=== PATIENT | female | born 1930 | race Caucasian/White ===

== ENCOUNTER 2020-05-09 17:30 | Observation (INO) ==
--- NOTE | 2020-05-09 17:49 | ERNOTE ---
Neuro HPI ER Record Date of Service: 05/09/20 Presenting Symptoms: other - AMS Time Seen by Provider: 05/09/20 17:35 Source: EMS Exam Limitations: clinical condition Immunizations: IMMUNIZATION HX Immunizations Up to Date Yes History of Influenza Vaccine More Information Required Hx Pneumococcal Vaccination More Information Required Allergies/Adverse Reactions: Allergies Allergy/AdvReac Type Severity Reaction Status Date / Time No Known Allergies Allergy Unverified 05/09/20 17:40 Home Medications: HOME MEDICATIONS Acetaminophen [Tylenol] 650 mg PO PRN PRN 05/09/20 [Last Taken Unknown] Aspirin [Aspirin EC] 81 mg PO DAILY 05/09/20 [Last Taken Unknown] Atorvastatin Calcium 40 mg PO DAILY 05/09/20 [Last Taken Unknown] Bisacodyl [Dulcolax] 5 mg PO DAILY PRN 05/09/20 [Last Taken Unknown] Bisacodyl [Laxative] 5 mg PO PRN PRN 05/09/20 [Last Taken Unknown] Brimonidine Tartrate/Timolol [Combigan Eye Drops] 1 drp OPHTHALMIC (EYE) DAILY 05/09/20 [Last Taken Unknown] Brinzolamide [Azopt 1% Ophthalmic Suspension] 1 drp OPHTHALMIC (EYE) DAILY 05/09/20 [Last Taken Unknown] Carvedilol [Coreg] 3.125 mg PO 05/09/20 [Last Taken Unknown] Escitalopram Oxalate [Lexapro] 5 mg PO DAILY 05/09/20 [Last Taken Unknown] Irbesartan 75 mg PO DAILY 05/09/20 [Last Taken Unknown] Latanoprost/Pf [Latanoprost 0.005% Eye Drop] 1 drp OPHTHALMIC (EYE) DAILY 05/09/20 [Last Taken Unknown] Levothyroxine Sodium [Synthroid] 50 mcg PO DAILY 05/09/20 [Last Taken Unknown] Multivitamin/Iron/Folic Acid [Tab-A-Светлана Multivit with Iron] 1 ea PO DAILY 05/09/20 [Last Taken Unknown] Propylene Glycol/Peg 400/Pf [Systane 0.3-0.4% Eye Drops] 1 ea OPHTHALMIC (EYE) BID PRN 05/09/20 [Last Taken Unknown] - Pain Score Pain Score #1 Pain Score: 0 - History of Present Illness Narrative: The patient is a 89 year old female who presents from [facility] for AMS which was noted 1 hour CAR COU[employer] by staff. There are associated symptoms of weakness. The patient denies pain. There are no alleviating factors. There are no aggravating factors. Previous treatments have included: none. The past medical history includes: cognitive decline, HTN, HLD, hypothyroid and macular degeneration. The social history is negative. The patient has had no known ill contacts. Report from [facility] staff that patient was found wandering down halls and looking through drawers, patient was needing redirection and was noted to have AMS. Staff state that patient reported discomfort to her chest and weakness. Review of Systems - Narrative Narrative: Unable to verify ROS with patient due to AMS and poor historian. - Review of Systems Constitutional: Absent: recent illness Medical History (Last Updated 05/09/20 @ 17:49 by Annalisa Bee RN) Age-related cognitive decline Altered mental status, unspecified Essential (primary) hypertension History of falling Hyperlipidemia, unspecified Hypothyroidism Presbycusis, bilateral Primary open angle glaucoma (POAG) of both eyes Repeated falls Unspecified macular degeneration Unsteadiness on feet Physical Exam - Physical Exam General Appearance: Present: wd/wn, alert, no apparent distress Head Exam: Present: normal inspection, no evidence of injury Eye Exam: Normal inspection: bilateral, PERRL: left - abnormal, chronic, EOMI: bilateral Neck: Present: normal inspection, nontender, full range of motion Respiratory: Present: no respiratory distress, normal breath sounds, no accessory muscle use, lungs clear Cardiovascular/Chest: Present: regular rate, rhythm, no murmur Gastrointestinal/Abdominal: Present: normal bowel sounds, nontender, nondi stended, soft, no organomegaly Extremity Exam: Present: no edema Neurological Exam: Present: alert, normal mood/affect, no motor/sensory deficits, disoriented to time, disoriented to place, disoriented to situation. Absent: disoriented to person Skin Exam: Present: normal color, warm/dry Antonio Coma Scale - Assess Eye Opening: Spontaneous Motor: Obeys Commands Verbal: Confused - Total Coma Scale Total: 14 Initial Stroke Assessment - NIH Stroke Scale Level of Consciousness: Alert LOC Questions (Year and Age): Answers neither correctly LOC Commands (open/close eyes/fist): Performs both correctly Lateral Gaze Paresis: None Visual Field Loss: No visual loss - Unable to accurately assess Facial Palsy: Normal movement Right Arm Motor (10 sec hold): No drift Left Arm Motor (10 sec hold): No drift Right Leg Motor (5 sec hold): No drift Left Leg Motor (5 sec hold): No drift Limb Ataxia (finger/nose heel/aguirre): Absent Sensory Loss (pinprick arms/legs/face): No sensory loss Language Aphasia (description/naming/reading): No aphasia; normal Dysarthria (speech clarity): Normal articulation Neglect Inattention (visual/tactile/auditory/spatial/person): No neglect Initial Stroke Scale Score:: 2 Progress - Date and Time Seen: Date and Time: 05/09/20 19:34 Son present in room. Patient remains after IV hydration unable to report time, place or events which son states is very unlike her. We will treat patient for presumed UTI and discuss observation admission with Dr. Mi. 05/09/20 19:40 Case was discussed with Dr. Mi and will admit for observation for AMS and UTI. Will treat patient with IV Rocephin for initial dose. 05/09/20 20:08 We will COVID test patient since she lives at residential care facility as well as having vitals of temp 37.7 and intermittent tachycardia. It is also difficult to assess patient's symptoms as well as review symptoms prior to arrival as patient is poor historian associated with disorientation. Son states when present that patient is typically oriented and understands place, time and situation. - Results and Orders Patient's Lab Results:: I have reviewed the patient's lab results. - Vital Signs Patient's Vital Signs:: I have reviewed the patient's vital signs. Vital Signs: Vital Signs 05/09/20 17:33 Temperature 37.5 C Pulse Rate 96 Respiratory Rate 27 H Blood Pressure 180/68 H O2 Sat by Pulse Oximetry 91 L - EKG EKG #1 EKG: NSR, other - PAC EKG read: Reviewed by me EKG Comments: Reviewed with , no acute ischemic changes. - X-Ray X-Ray #1 X-Ray: chest Interpretation: Reviewed by me X-ray Comments: Real radiology preliminary report Single view chest x-ray No acute cardiopulmonary process. - Progress/Reassessment Chief Complaint: Altered Mental Status Departure Clinical Impression: UTI (urinary tract infection) Qualifiers: Urinary tract infection type: site unspecified Hematuria presence: without hematuria Qualified Code(s): N39.0 - Urinary tract infection, site not specified AMS (altered mental status) Qualifiers: Altered mental status type: disorientation Qualified Code(s): R41.0 - Disorientation, unspecified - Departure Disposition: Still a patient Condition: Stable
[2020-05-09 17:52] LABS: Hematocrit 37.8 % (37.0-47.0); Hemoglobin 12.2 gm/dL (12.5-16.0); Mean Cell Volume 95.5 fl (78-100); Mean Corpuscular Hemoglobin 30.8 pg (27-31); Mean Corpuscular Hgb Conc 32.3 g/dl (32-36); Mean Platelet Volume 9.3 fl (8-12.5); Neutrophil # 4.3 K/mm3 (1.3-6.0); Neutrophil % 70.9 % (42-75.0); Platelet Count 231 K/mm3 (150-450); Red Blood Count 3.96 M/mm3 (4.2-5.4); White Blood Count 6.1 K/mm3 (4.0-10.5)
[2020-05-09 18:02] LABS: Prothrombin Time (Patient) 9.9 Seconds (9.1-10.7)
[2020-05-09 18:03] LABS: Partial Thrombolplastin Time 23.3 Seconds (24-32)
[2020-05-09 18:05] LABS: Albumin * 3.9 gm/dl (3.4-5.0); Anion Gap 11.8 mmol/L (6.8-13.8); BUN/Creatinine Ratio 21.6 (9.0-21.6); Bilirubin, Total 0.4 mg/dL (0.0-1.1); Ca. Corrected For Albumin 9.2 mg/dL (8.4-10.2); Calcium * 9.4 mg/dL (7.9-10.9); Carbon Dioxide 28.2 mmol/L (24-32.6); Total Protein 7.1 gm/dL (6.2-8.2)
[2020-05-09 18:20] LABS: Urine Bilirubin Negative (NEGATIVE); Urine Ketone 5 mg/dL (NEGATIVE); Urine Nitrite Negative (NEGATIVE); Urine Protein Negative (NEGATIVE); Urine Specific Gravity >=1.030 SP.GR. (1.005-1.010); Urine Urobilinogen Normal (NORMAL); Urine pH 5.5 pH (5.0-7.0)
[2020-05-09 18:35] LABS: Urine Appearance Clear (CLEAR); Urine Blood 5 /ul (NEGATIVE); Urine Color Yellow
[2020-05-09 18:36] LABS: Urine Bacteria 3+; Urine Mucus Few - 1+; Urine RBC TRACE /hpf (0-5); Urine WBC TRACE /hpf (0-5)
[2020-05-09] MEDS ORDERED: NORMAL SALINE 500 ML IV PRN (18:38)
[2020-05-09] MEDS ORDERED: cefTRIAXone SODIUM 1,000 MG/100 ML BAG IV ONE (19:35)
--- NOTE | 2020-05-10 06:42 | HP ---
Chief Complaint - Chief Complaint Date of Service: 05/10/20 Time of Service: 06:33 Chief Complaint: AMS History of Present Illness: Parvin Castañeda is an 89-year-old white female who is a resident of [facility] was admitted on 05/09/2024 altered mental status. Her past medical history significant for cognitive decline, hyperlipidemia, hypertension, hypothyroidism, macular degeneration, bilateral presbycusis, history of unsteady gait and history of repeated falls. The patient is awake alert oriented x2 however I am having difficulty getting a clear conversation with her and history. Per emergency room notes the patient was found wandering down the halls and looking through drawers. She was needing redirections and was noted to have altered mental status. [facility] staff also mentioned about discomfort to the chest and weakness. She was then brought to our emergency room where her EKG showed normal sinus rhythm with premature ventricular contraction, no acute cardiopulmonary findings on chest x-ray but with a hiatal hernia, not so significant laboratory results, and a urinalysis which shows bacteria, WBC, microscopic blood and RBC with negative leukocyte esterase and nitrates. She was given 1 g of IV Rocephin in the emergency room and IV fluids and was admitted for observation. Medical History (Last Reviewed 05/09/20 @ 22:40 by Eloisa Velarde RN) Age-related cognitive decline Altered mental status, unspecified Essential (primary) hypertension History of falling Hyperlipidemia, unspecified Hypothyroidism Presbycusis, bilateral Primary open angle glaucoma (POAG) of both eyes Repeated falls Unspecified macular degeneration Unsteadiness on feet Review Of Systems (GEN) - Review of Systems Generalized/Overall Review: Absent: Chills, Fever EENTM: Present: Blurred Vision Respiratory: Absent: Cough, Shortness of Breath, Orthopnea Cardiac: Absent: Chest Pain, Edema, Palpitations Abdominal: Absent: Nausea, Vomiting, Abdominal Pain, Diarrhea Genitourinary: Absent: Urgency, Frequency, Dysuria Neurological: Absent: Headache, Anxiety, Depressed Skin: Absent: Lesions, Rash Misc: All systems neg except as marked Additional Comments: Review of system however is unreliable due to patient's altered mental status Immunizations: IMMUNIZATION HX Immunizations Up to Date Yes History of Influenza Vaccine More Information Required Hx Pneumococcal Vaccination More Information Required Allergies/Adverse Reactions: Allergies Allergy/AdvReac Type Severity Reaction Status Date / Time No Known Allergies Allergy Unverified 05/09/20 17:40 Home Medications: HOME MEDICATIONS Acetaminophen [Tylenol] 650 mg PO Q4H PRN 05/09/20 [Last Taken Unknown] Aspirin [Aspirin EC] 81 mg PO DAILY 05/09/20 [Last Taken 05/09/20 07:00] Atorvastatin Calcium 40 mg PO DAILY 05/09/20 [Last Taken 05/08/20 17:00] Bisacodyl [Dulcolax] 10 mg PO DAILY PRN 05/09/20 [Last Taken Unknown] Bisacodyl [Laxative] 10 mg PO DAILY PRN 05/09/20 [Last Taken Unknown] Brimonidine Tartrate/Timolol [Combigan 0.2%-0.5% Eye Drops] 1 drp OPHTHALMIC (EYE) DAILY 05/09/20 [Last Taken 05/09/20 07:00] Brinzolamide [Azopt 1% Ophthalmic Suspension] 1 drp OPHTHALMIC (EYE) DAILY 05/09/20 [Last Taken 05/09/20 07:00] Carvedilol [Coreg] 3.125 mg PO DAILY 05/09/20 [Last Taken 05/09/20 07:00] Escitalopram Oxalate [Lexapro] 5 mg PO DAILY 05/09/20 [Last Taken 05/08/20 20:00] Irbesartan 75 mg PO DAILY 05/09/20 [Last Taken 05/09/20 07:00] Latanoprost/Pf [Latanoprost 0.005% Eye Drop] 1 drp OPHTHALMIC (EYE) DAILY 05/09/20 [Last Taken 05/08/20 20:00] Levothyroxine Sodium [Synthroid] 50 mcg PO DAILY 05/09/20 [Last Taken 05/09/20 07:00] Multivitamin/Iron/Folic Acid [Tab-A-Светлана Multivit with Iron] 1 ea PO DAILY 05/09/20 [Last Taken 05/09/20 07:00] Propylene Glycol/Peg 400/Pf [Systane 0.3-0.4% Eye Drop] 2 ea OPHTHALMIC (EYE) BID PRN 05/09/20 [Last Taken Unknown] Ciprofloxacin HCl [Cipro] 500 mg PO BID 2 Days #4 tab 05/10/20 [Last Taken Unknown] Exam - Exam Vital Signs: Vital Signs - Last Taken Temp 37 C 05/10/20 03:00 Pulse 89 05/10/20 03:00 Resp 20 05/10/20 03:00 BP 139/65 05/10/20 03:00 Pulse Ox 92 L 05/10/20 03:00 Constitutional: Present: Alert - Awake alert oriented x2, Cooperative, Elderly ENT Exam: Present: hard of hearing Eye Exam: bilateral eye: normal inspection, PERRL, EOMI Neck: Present: supple Respiratory: Present: decreased breath sounds, No rales, No wheezing Cardiovascular/Chest: Present: regular rate, rhythm, no JVD, no murmur Abdomen: Present: Normal bowel sounds, soft, nontender, nondistended Extremity: Present: no pedal edema, no calf tenderness Neurologic: Present: other - Awake alert oriented x2, cranial nerves II through XII grossly intact, no gross motor or sensory deficit Diagnostic Studies: Abnormal Lab Results 05/09/20 05/09/20 05/09/20 Range/Units 17:46 17:46 17:46 RBC 3.96 L (4.2-5.4) M/mm3 Hgb 12.2 L (12.5-16.0) gm/dL Immature Gran % (Auto) 0.70 H (0.001-0.429) % Immature Gran # (Auto) 0.04 H (0.000-0.0310) K/mm3 Lymphocytes % 17.6 L (20-51) % Lymphocytes # 1.07 L (1.5-3.5) k/mm3 PTT (Luis) 23.3 L (24-32) Seconds Est GFR (Non-Af Amer) 57 L (60-130) mL/min Random Glucose 124 H (70-110) mg/dL Urine Blood (NEGATIVE) /ul Urine WBC (0-5) /hpf Urine Bacteria (NONE) Urine Mucus (NONE) 05/09/20 Range/Units 18:15 RBC (4.2-5.4) M/mm3 Hgb (12.5-16.0) gm/dL Immature Gran % (Auto) (0.001-0.429) % Immature Gran # (Auto) (0.000-0.0310) K/mm3 Lymphocytes % (20-51) % Lymphocytes # (1.5-3.5) k/mm3 PTT (Luis) (24-32) Seconds Est GFR (Non-Af Amer) (60-130) mL/min Random Glucose (70-110) mg/dL Urine Blood 5 H (NEGATIVE) /ul Urine WBC Trace H (0-5) /hpf Urine Bacteria 3+ H (NONE) Urine Mucus Few - 1+ H (NONE) Microbiology 05/09/20 17:35 Urine Culture - Preliminary Urine,Catheterized No Growth Laboratory Results WBC 6.1 K/mm3 (4.0-10.5) 05/09/20 17:46 RBC 3.96 M/mm3 (4.2-5.4) L 05/09/20 17:46 Hgb 12.2 gm/dL (12.5-16.0) L 05/09/20 17:46 Hct 37.8 % (37.0-47.0) 05/09/20 17:46 MCV 95.5 fl (78-100) 05/09/20 17:46 MCH 30.8 pg (27-31) 05/09/20 17:46 MCHC 32.3 g/dl (32-36) 05/09/20 17:46 RDW 13.0 % (11.5-14.0) 05/09/20 17:46 Plt Count 231 K/mm3 (150-450) 05/09/20 17:46 MPV 9.3 fl (8-12.5) 05/09/20 17:46 Immature Gran % (Auto) 0.70 % (0.001-0.429) H 05/09/20 17:46 Immature Gran # (Auto) 0.04 K/mm3 (0.000-0.0310) H 05/09/20 17:46 Neutrophils % 70.9 % (42-75.0) 05/09/20 17:46 Lymphocytes % 17.6 % (20-51) L 05/09/20 17:46 Monocytes % 8.4 % (0.0-9) 05/09/20 17:46 Eosinophils % 1.6 % (0.0-3.0) 05/09/20 17:46 Basophils % 0.8 % (0.0-1.0) 05/09/20 17:46 Nucleated RBC % 0.0 k/mm3 (0-1) 05/09/20 17:46 Neutrophils # 4.3 K/mm3 (1.3-6.0) 05/09/20 17:46 Lymphocytes # 1.07 k/mm3 (1.5-3.5) L 05/09/20 17:46 Monocytes # 0.5 k/mm3 (0.0-1.0) 05/09/20 17:46 Eosinophils # 0.1 k/mm3 (0.0-0.7) 05/09/20 17:46 Absolute Basophils 0.1 k/mm3 (0.0-0.1) 05/09/20 17:46 ESR 13 mm/hr (0-15) 05/09/20 17:46 PT 9.9 Seconds (9.1-10.7) 05/09/20 17:46 INR (Anticoag Therapy) 1.00 INR (0.92-1.08) 05/09/20 17:46 PTT ([place]) 23.3 Seconds (24-32) L 05/09/20 17:46 Sodium 140 mmol/L (132-142) 05/09/20 17:46 Plasma Sodium 140 mmol/L (130-142) 05/09/20 17:46 Potassium 4.0 mmol/L (3.4-4.6) 05/09/20 17:46 Chloride 104 mmol/L (97-106) 05/09/20 17:46 Carbon Dioxide 28.2 mmol/L (24-32.6) 05/09/20 17:46 Anion Gap 11.8 mmol/L (6.8-13.8) 05/09/20 17:46 BUN 21 mg/dL (3-23) 05/09/20 17:46 Creatinine 0.97 mg/dL (0.4-1.4) 05/09/20 17:46 Est GFR (Non-Af Amer) 57 mL/min (60-130) L 05/09/20 17:46 BUN/Creatinine Ratio 21.6 (9.0-21.6) 05/09/20 17:46 Random Glucose 124 mg/dL (70-110) H 05/09/20 17:46 Lactic Acid, Venous 1.5 mmol/L (0.4-2.0) 05/09/20 17:46 Calcium 9.4 mg/dL (7.9-10.9) 05/09/20 17:46 Calcium Adj for Albumin 9.2 mg/dL (8.4-10.2) 05/09/20 17:46 Total Bilirubin 0.4 mg/dL (0.0-1.1) 05/09/20 17:46 AST 26 U/L (0-48) 05/09/20 17:46 ALT 28 U/L (19-67) 05/09/20 17:46 Alkaline Phosphatase 76 U/L (50-170) 05/09/20 17:46 Troponin I Less than 0.017 ng/mL (0.00-0.10) 05/09/20 17:43 Total Protein 7.1 gm/dL (6.2-8.2) 05/09/20 17:46 Albumin 3.9 gm/dl (3.4-5.0) 05/09/20 17:46 Urine Color Yellow 05/09/20 18:15 Urine Appearance Clear (CLEAR) 05/09/20 18:15 Urine pH 5.5 pH (5.0-7.0) 05/09/20 18:15 Ur Specific [place] >=1.030 SP.GR. (1.005-1.010) 05/09/20 18:15 Urine Protein Negative mg/dL (NEGATIVE) 05/09/20 18:15 Urine Glucose (UA) Negative mg/dL (NEGATIVE) 05/09/20 18:15 Urine Ketones 5 mg/dL (NEGATIVE) 05/09/20 18:15 Urine Blood 5 /ul (NEGATIVE) H 05/09/20 18:15 Urine Nitrate Negative (NEGATIVE) 05/09/20 18:15 Urine Bilirubin Negative mg/dl (NEGATIVE) 05/09/20 18:15 Urine Urobilinogen Normal EU/dl (NORMAL) 05/09/20 18:15 Ur Leukocyte Esterase Negative /ul (NEGATIVE) 05/09/20 18:15 Urine RBC Trace /hpf (0-5) 05/09/20 18:15 Urine WBC Trace /hpf (0-5) H 05/09/20 18:15 Ur Epithelial Cells Trace /hpf (0-5) 05/09/20 18:15 Urine Bacteria 3+ (NONE) H 05/09/20 18:15 Urine Mucus Few - 1+ (NONE) H 05/09/20 18:15 Urine Culture Comments Culture to follow 05/09/20 18:15 SARS-CoV-2 (PCR) Not detected (ND) 05/09/20 20:08 Assessment/Plan - Narrative Narrative: Parvin Castañeda is an 89-year-old white female resident of the [facility] who was admitted for disorientation and confusion and was admitted for observation. Work-up was negative in the emergency room and she was admitted after IV fluids and 1 g of IV Rocephin for suspected UTI. She is still pleasantly confused this morning but is awake alert oriented x2 ( responded to her name and also answered 2020 to what year it is now by nurse). Her past medical history shows cognitive decline and I believe this is just a progression of that with possible sundowning. We will have physical therapy evaluate her today and is for possible discharge back to her snf. Asymptomatic bacteriuria in the elderly is not usually treated with antibiotics but it was sent for culture and will await results. On the other hand due to her confusion her ROS is unreliable and she could have signs/symptoms of beginning acute cystitis, Will start her on oral cipro 500 mg PO BID for 2 more days. - Assessment/Plan (1) AMS (altered mental status) Problem: Acute Qualifiers: Altered mental status type: disorientation Qualified Code(s): R41.0 - Disorientation, unspecified (2) Asymptomatic bacteriuria Problem: Acute (3) Dementia Problem: Chronic Qualifiers: Dementia type: Alzheimer's disease (4) Hypothyroidism Problem: Chronic Qualifiers: Hypothyroidism type: acquired Qualified Code(s): E03.9 - Hypothyroidism, unspecified (5) Hyperlipidemia Problem: Chronic Qualifiers: Hyperlipidemia type: pure hypercholesterolemia Qualified Code(s): E78.00 - Pure hypercholesterolemia, unspecified (6) History of unsteady gait Assessment: with history of repeated falls. Problem: Chronic (7) CRF (chronic renal failure) Problem: Chronic Qualifiers: Chronic kidney disease stage: stage 3 (moderate) Qualified Code(s): N18.3 - Chronic kidney disease, stage 3 (moderate)
[2020-05-10] MEDS ORDERED: PROPYLENE GLYCOL EACHEYE PRN (08:32)
[2020-05-10] MEDS ORDERED: BISACODYL 10 MG PO PRN (08:32)
[2020-05-10] MEDS ORDERED: [UNRECOGNIZED DRUG - OTHER] EACHEYE PRN (08:32)
[2020-05-10] MEDS ORDERED: PEG EACHEYE PRN (08:32)
[2020-05-10] MEDS ORDERED: BISACODYL 5 MG TABLET.DR PO PRN (08:32)
[2020-05-10] MEDS ORDERED: ACETAMINOPHEN 325 MG TABLET PO PRN (08:32)
--- NOTE | 2020-05-10 08:43 | DS ---
(1) AMS (altered mental status) Problem: Acute Qualifiers: Altered mental status type: disorientation Qualified Code(s): R41.0 - Disorientation, unspecified (2) Asymptomatic bacteriuria Problem: Acute (3) Dementia Problem: Chronic Qualifiers: Dementia type: Alzheimer's disease (4) Hypothyroidism Problem: Chronic Qualifiers: Hypothyroidism type: acquired Qualified Code(s): E03.9 - Hypothyroidism, unspecified (5) Hyperlipidemia Problem: Chronic Qualifiers: Hyperlipidemia type: pure hypercholesterolemia Qualified Code(s): E78.00 - Pure hypercholesterolemia, unspecified (6) History of unsteady gait Problem: Chronic Date of Discharge:: 05/10/20 Hospital Course: Parvin Castañeda is an 89-year-old white female who is a resident of [facility] was admitted on 05/09/2024 altered mental status. Her past medical history significant for cognitive decline, hyperlipidemia, hypertension, hypothyroidism, macular degeneration, bilateral presbycusis, history of unsteady gait and history of repeated falls. The patient is awake alert oriented x2 however I am having difficulty getting a clear conversation with her and history. Per emergency room notes the patient was found wandering down the halls and looking through drawers. She was needing redirections and was noted to have altered mental status. senior living staff also mentioned about discomfort to the chest and weakness. She was then brought to our emergency room where her EKG showed normal sinus rhythm with premature ventricular contraction, no acute cardiopulmonary findings on chest x-ray but with a hiatal hernia, not so significant laboratory results, and a urinalysis which shows bacteria, WBC, microscopic blood and RBC with negative leukocyte esterase and nitrates. She was given 1 g of IV Rocephin suspected UTI in the emergency room and IV fluids and was admitted for observation. Her work-up was negative in the emergency room except for a GFR 57. She is still pleasantly confused this morning but is awake alert oriented x2 ( responded to her name and also answered 2020 to what year it is now by nurse). Her past medical history showed cognitive decline and I believe this is just a progression of that with possible sundowning. We had physical therapy evaluate her today and they said she did fine and ambulated with contact assist. Asymptomatic bacteriuria in the elderly is not usually treated with antibiotics but it was sent for culture and will await results. On the other hand due to her confusion which makes her ROS unreliable. she could have other signs/symptoms of beginning acute cystitis aside from confusion. Will start her on oral cipro 500 mg PO BID for 2 more days. We will discharge her today and to follow up with her PCP about her increasing cognitive decline. Procedures Performed: none Results and Findings: Pending Mircobiology Results 05/09/20 17:35 Urine,Catheterized Urine Culture - Preliminary No Growth Lab Pending Results 05/09/20 17:43: Troponin I Less than 0.017 05/09/20 17:46: WBC 6.1, RBC 3.96 L, Hgb 12.2 L, Hct 37.8, MCV 95.5, MCH 30.8, MCHC 32.3, RDW 13.0, Plt Count 231, MPV 9.3, Immature Gran % (Auto) 0.70 H, Immature Gran # (Auto) 0.04 H, Neutrophils % 70.9, Lymphocytes % 17.6 L, Monocytes % 8.4, Eosinophils % 1.6, Basophils % 0.8, Nucleated RBC % 0.0, Neutrophils # 4.3, Lymphocytes # 1.07 L, Monocytes # 0.5, Eosinophils # 0.1, Absolute Basophils 0.1 05/09/20 17:46: ESR 13 05/09/20 17:46: PT 9.9, INR (Anticoag Therapy) 1.00, PTT (Luis) 23.3 L 05/09/20 17:46: Sodium 140, Plasma Sodium 140, Potassium 4.0, Chloride 104, Carbon Dioxide 28.2, Anion Gap 11.8, BUN 21, Creatinine 0.97, Est GFR (Non-Af Amer) 57 L, BUN/Creatinine Ratio 21.6, Random Glucose 124 H, Calcium 9.4, Calcium Adj for Albumin 9.2, Total Bilirubin 0.4, AST 26, ALT 28, Alkaline Phosphatase 76, Total Protein 7.1, Albumin 3.9 05/09/20 17:46: Lactic Acid, Venous 1.5 05/09/20 18:15: Urine Color Yellow, Urine Appearance Clear, Urine pH 5.5, Ur Specific [place] >=1.030, Urine Protein Negative, Urine Glucose (UA) Negative, Urine Ketones 5, Urine Blood 5 H, Urine Nitrate Negative, Urine Bilirubin Negative, Urine Urobilinogen Normal, Ur Leukocyte Esterase Negative, Urine RBC Trace, Urine WBC Trace H, Ur Epithelial Cells Trace, Urine Bacteria 3+ H, Urine Mucus Few - 1+ H, Urine Culture Comments Culture to follow 05/09/20 20:08: SARS-CoV-2 (PCR) Not detected Discharge Location: [facility] Disposition: Home self-care Condition: Stable Discharge Activity: Activity as tolerated Discharge Diet: General/regular food Additional Patient Instructions (free text): Follow up with PCP in 1 week. Prescriptions (Any new or edited meds): Ciprofloxacin HCl [Cipro] 500 mg PO BID 2 Days #4 tab Complete Home Medications List: Complete Home Medication List: Acetaminophen [Tylenol] 650 mg PO Q4H PRN 05/09/20 Aspirin [Aspirin EC] 81 mg PO DAILY 05/09/20 Atorvastatin Calcium 40 mg PO DAILY 05/09/20 Bisacodyl [Dulcolax] 10 mg PO DAILY PRN 05/09/20 Bisacodyl [Laxative] 10 mg PO DAILY PRN 05/09/20 Brimonidine Tartrate/Timolol [Combigan 0.2%-0.5% Eye Drops] 1 drp OPHTHALMIC (EYE) DAILY 05/09/20 Brinzolamide [Azopt 1% Ophthalmic Suspension] 1 drp OPHTHALMIC (EYE) DAILY 05/09/20 Carvedilol [Coreg] 3.125 mg PO DAILY 05/09/20 Escitalopram Oxalate [Lexapro] 5 mg PO DAILY 05/09/20 Irbesartan 75 mg PO DAILY 05/09/20 Latanoprost/Pf [Latanoprost 0.005% Eye Drop] 1 drp OPHTHALMIC (EYE) DAILY 05/09/20 Levothyroxine Sodium [Synthroid] 50 mcg PO DAILY 05/09/20 Multivitamin/Iron/Folic Acid [Tab-A-Светлана Multivit with Iron] 1 ea PO DAILY 05/09/20 Propylene Glycol/Peg 400/Pf [Systane 0.3-0.4% Eye Drop] 2 ea OPHTHALMIC (EYE) BID PRN 05/09/20 Ciprofloxacin HCl [Cipro] 500 mg PO BID 2 Days #4 tab 05/10/20
[2020-05-10] MEDS ORDERED: CARVEDILOL 3.125 MG TABLET PO SCH (09:00)
[2020-05-10] MEDS ORDERED: [UNRECOGNIZED DRUG - OTHER] ophthalmic (eye) SCH (09:00)
[2020-05-10] MEDS ORDERED: MULTIVITAMIN/IRON/FOLIC ACID 1 TAB TABLET PO SCH (09:00)
[2020-05-10] MEDS ORDERED: LOSARTAN POTASSIUM 50 MG TABLET PO SCH (09:00)
[2020-05-10] MEDS ORDERED: CIPROFLOXACIN HCL 500 MG TABLET PO SCH (09:00)
[2020-05-10] MEDS ORDERED: BRIMONIDINE TARTRATE ophthalmic (eye) SCH (09:00)
[2020-05-10] MEDS ORDERED: LATANOPROST 25 DROP BTL OP SCH (09:00)
[2020-05-10] MEDS ORDERED: TIMOLOL ophthalmic (eye) SCH (09:00)
[2020-05-10] MEDS ORDERED: ASPIRIN 81 MG TABLET.DR PO SCH (09:00)
[2020-05-10] MEDS ORDERED: ESCITALOPRAM OXALATE 10 MG TAB PO SCH (09:00)
[2020-05-10] MEDS ORDERED: BRINZOLAMIDE 100 DROP BTL RIGHTEYE SCH (09:00)
[2020-05-10] MEDS ORDERED: LEVOTHYROXINE SODIUM 50 MCG TABLET PO SCH (09:00)
[2020-05-10 10:35] VITALS: BP 140/63
[2020-05-10] MEDS ORDERED: ROSUVASTATIN CALCIUM 20 MG TABLET PO SCH (21:00)
== END 2020-05-10 10:46 | disposition home or self-care (01) ==
LOC: ER 17:30 → MS 17:30
PROVIDERS: ADMIT Internal Medicine; ATTEND Internal Medicine
CPT/HCPCS: 36415; 70450; 71010; 71045; 80053; 81001; 83605; 84484; 85025; 85610; 85652; 85730; 87081; 87086; 93005; 96365; 97161; 99284; 99285; G0378